=== PATIENT | female | born 1975 | race Caucasian/White ===

== ENCOUNTER → 2022-01-05 07:53 | Outpatient (REF) | payer OTHER, SELFPAY | LOC: ANHLAB 07:53 | PROVIDERS: PCP Family Medicine; Visit Provider Nurse Practitioner | DX: C44.319 Basal cell carcinoma of skin of other parts of face (principal) | CPT/HCPCS: 88305; 88331 ==

== ENCOUNTER → 2022-04-29 15:25 | Outpatient (CLI) | payer OTHER, SELFPAY ==
--- NOTE | ~2022-04-29 | US_ITS ---
EXAMINATION: US thyroid DATE: 04/29/2022 15:59 INDICATION: Nontoxic goiter, unspecified. TECHNIQUE: Multiple ultrasound images of the thyroid were obtained. COMPARISON: None. FINDINGS: The right thyroid lobe measures 4.5 x 2.0 x 1.7 cm. The left thyroid lobe measures 4.5 x 1.6 x 1.8 c m. The thyroid demonstrates diffusely heterogeneous echogenicity with nodules of similar ultrasound appearance. Vascularity is increased. IMPRESSION: 1. Heterogeneous, hypervascular thyroid, likely chronic lymphocytic (Brenda) thyroiditis. Reviewed, dictated and finalized at location A.
== END ==
PROVIDERS: PCP Family Medicine; Visit Provider Family Medicine
DX: E04.9 Nontoxic goiter, unspecified (principal)
CPT/HCPCS: 76536

== ENCOUNTER 2022-09-11 14:49 | Emergency (ER) | payer OTHER, SELFPAY ==
[2022-09-11 14:59] VITALS: BP 128/84; PULSE 85; RESP 16; TEMP 36.6; O2SAT 99
[2022-09-11 15:03] VITALS: BP 128/84; PULSE 85; RESP 16; TEMP 36.6; O2SAT 99
--- NOTE | 2022-09-11 15:15 | ED.URI ---
HPI - URI/Sore Throat General Chief Complaint: Upper Respiratory Infection Stated Complaint: rt side of ear/face, congestion, cough, runny nose Time Seen by Provider: 09/11/22 15:05 Source: patient, RN notes reviewed and old records reviewed Mode of arrival: ambulatory Limitations: no limitations History of Present Illness HPI Narrative: 47 year presents to [facility] complaints of having respiratory virus about 3 weeks ago, she reports having dry hacking cough with congestion and fatigue. Patient reports that since Wednesday or Wednesday she has had swelling and tenderness to the right side of her neck along her lymph nodes and jawline.Patient reports increased discomfort with coughing or if she yawns or open her mouth wide. Patient denies any fevers chills or sweats. MD elicited complaint: cough, rhinorrhea, nasal congestion and other (right side of ear or face pain) Onset (ago): day(s) (4) Pain scale (0-10): 3 Treatments prior to arrival: ibuprofen and other (sudafed) Related Data Home Medications Medication Instructions Recorded Confirmed loratadine 10 mg tablet (Claritin) 10 mg PO DAILY 01/05/22 09/11/22 duloxetine 60 mg capsule,delayed 60 mg PO DAILY 09/11/22 09/11/22 release rizatriptan 10 mg tablet 10 mg PO DAILY 09/11/22 trazodone 50 mg tablet 50 mg PO HS 09/11/22 09/11/22 Allergies Allergy/AdvReac Type Severity Reaction Status Date / Time amoxicillin Allergy Unknown Rash Verified 09/11/22 14:59 codeine Allergy Unknown Vomiting Verified 09/11/22 14:59 Penicillins Allergy Unknown Unknown Verified 09/11/22 14:59 thimerosal Allergy Unknown Swelling Verified 09/11/22 14:59 Review of Systems Review of Systems: CONSTITUTIONAL: Denies malaise, chills, sweats, or fever. EYES: Denies visual changes, redness, or discharge. ENT: Reports rhinorrhea, congestion, sinus pain, no otalgia no sore throat, positive for swollen gland right side of neck and jaw CARDIOVASCULAR: Denies chest pain, palpitations, or edema. RESPIRATORY: Reports cough.? Denies dyspnea. GASTROINTESTINAL: Denies abdominal pain, nausea, vomiting, diarrhea SKIN: Denies rash or itching. MUSCULOSKELETAL: Denies myalgia. NEUROLOGIC: Denies headache. 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 There is no relevant family history pertinent to the presenting complaint Exam Narrative: GENERAL: Well-appearing, well-nourished, and in no acute distress. HEAD: Normocephalic EYES: PERRLA, conjunctivae clear ENT: Nares clear, turbinates edematous and erythematous, clear discharge. Mucous memb
== END 2022-09-11 15:31 | disposition home or self-care (01) ==
PROVIDERS: Emergency Provider Registered Nurse; PCP Family Medicine
DX: R59.0 Localized enlarged lymph nodes (principal); Z87.891 Personal history of nicotine dependence; F32.A Depression, unspecified; N80.9 Endometriosis, unspecified; K21.9 Gastro-esophageal reflux disease without esophagitis; Z85.3 Personal history of malignant neoplasm of breast; Z86.16 Personal history of COVID-19
CPT/HCPCS: 99213; G0463

== ENCOUNTER 2023-01-25 16:38 | Emergency (ER) | payer OTHER, SELFPAY ==
--- NOTE | ~2023-01-25 | XR_ITS ---
EXAMINATION: XR hand LT min 3V DATE: 01/25/2023 16:55 INDICATION: Dorsal left hand pain post trauma TECHNIQUE: Posteroanterior, oblique and lateral views of the left hand were obtained. COMPARISON: None. FINDINGS: Alignment is normal. No fracture. Minimal to mild osteoarthritis at a few of the interphalangeal join ts with distal predominance. Soft tissues are unremarkable. IMPRESSION: 1. No acute osseous abnormality. Reviewed, dictated and finalized at location B.
[2023-01-25 16:47] VITALS: BP 133/99; PULSE 70; RESP 16; TEMP 36.8; O2SAT 100
--- NOTE | 2023-01-25 16:54 | ED.UPPEXIN ---
HPI - Extremity Injury (Upper) General Chief Complaint: Extremity Injury, Upper Stated Complaint: lt hand injury Time Seen by Provider: 01/25/23 16:59 Source: patient Mode of arrival: ambulatory Limitations: no limitations History of Present Illness HPI narrative: 47 y/o female presented for c/o left hand pain and bruising after injury 2 days ago. States while she was pulling a chain on the gas blower, she struck the hand on a wooden bench. Sustained a small abrasion to the top of the hand. States the hand swelling has improved since yesterday. Denies numbness, tingling or weakness, or decreased ROM. Applied Bactine and bandaid. Related Data Home Medications Medication Instructions Recorded Confirmed loratadine 10 mg tablet (Claritin) 10 mg PO DAILY 01/05/22 09/11/22 duloxetine 60 mg capsule,delayed 60 mg PO DAILY 09/11/22 09/11/22 release trazodone 50 mg tablet 50 mg PO HS 09/11/22 09/11/22 Allergies Allergy/AdvReac Type Severity Reaction Status Date / Time amoxicillin Allergy Unknown Rash Verified 09/11/22 14:59 codeine Allergy Unknown Vomiting Verified 09/11/22 14:59 Penicillins Allergy Unknown Unknown Verified 09/11/22 14:59 thimerosal Allergy Unknown Swelling Verified 09/11/22 14:59 Review of Systems Review of Systems: CONSTITUTIONAL: Denies body aches, fever, chills EYES: Denies visual changes ENT: Denies rhinorrhea, congestion CARDIOVASCULAR: Denies chest pain, palpitations, or edema. RESPIRATORY: Denies cough or dyspnea. SKIN: Denies rash, itching, or wounds. MUSCULOSKELETAL: per HPI NEUROLOGIC: Denies headache, numbness, tingling, or weakness. 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 Status post excision of lipoma (~1999) left ant abdomen - 1999 Family History Family History Father Family history of thyroid disease Grandparent Family history of lymphoma Social History Social History Smoking status: Former smoker Second hand tobacco smoke exposure: No Smoking end date: 09/27/98 Alcohol intake: current Alcohol use details: consumes 2 beers daily Substance use: never Substance use type: does not use Gender identity (if verbalized by the patient): Female Comments At time of signature, I have reviewed and agree with nursing past medical, surgical, social and family history unless otherwise noted. Please see nursing chart for further information. There is no relevant family history pertinent to the presenting complaint Exam Narrative: GENERAL: Well-appearing, well-nourished, and in no acute distress. HEAD: Normocephalic, atraumatic. EYES: PERRLA, conjunctivae clear NECK: Supple. CHEST: Speaks in full sentences. No respiratory distress. HEART: Regular rate and rhythm. Normal and equal peripheral pulses. EXTREMITIES: left hand has normal strength and sensation, normal range of motion. Moderate bruising, minimal swelling to dorsal aspect of hand. Tenderness to contusion. Superficial abrasion across hand. No obvious deformity; pulse palpable and equal bilaterally, skin warm, dry, pink. Capillary refill less than 3 seconds. SKIN: Warm, dry, no rash. NEURO: Alert and oriented x3. PSYCH: Normal mood and a
== END 2023-01-25 17:18 | disposition home or self-care (01) ==
PROVIDERS: Emergency Provider Nurse Practitioner Family; PCP Family Medicine
DX: S60.222A Contusion of left hand, initial encounter (principal); W22.8XXA Striking against or struck by other objects, initial encounter; F32.A Depression, unspecified; K21.9 Gastro-esophageal reflux disease without esophagitis; Z86.16 Personal history of COVID-19; Z87.891 Personal history of nicotine dependence
CPT/HCPCS: 73130; 99213; G0463

== ENCOUNTER 2023-10-18 02:54 | Day surgery (SDC) | payer BC, SELFPAY ==
[2023-07-22 12:08] VITALS: BMI 30.7
[2023-09-29 09:44] VITALS: BMI 30.7
--- NOTE | 2023-10-15 09:12 | SUR.PREOP ---
Patient called regarding upcoming procedure. Reviewed preop instructions, appointment times, and procedure prep.
[2023-10-18 06:26] VITALS: BP 152/92; PULSE 81; RESP 18; TEMP 37.1; O2SAT 99; BMI 30.2
[2023-10-18] MEDS: LACTATED RINGERS 1,000 ML 150 ML IV CONT (06:39)
--- NOTE | 2023-10-18 07:22 | WPDANESEPPF ---
Anes - Initial Pre Proc Eval Procedure: Operation Date: 10/18/23 07:30 Proposed Procedures p Esophagogastroduodenoscopy & Colonoscopy - Stanley Jeffries MD Date/Time: 10/18/23 07:22 Surgeon: Stanley Jeffries MD Pre Op Diagnosis: neoplasm screening,GERD,chronic cough Patient Data Age: 48 Gender: F Height: 1.6 m Weight: 77.5 kg Last Vital Signs Temp 98.7 F 10/18/23 06:26 Pulse 81 10/18/23 06:26 Resp 18 10/18/23 06:26 BP 152/92 H 10/18/23 06:26 Pulse Ox 99 10/18/23 06:26 O2 Del Method Room Air 10/18/23 06:26 Allergies Allergy/AdvReac Type Severity Reaction Status Date / Time amoxicillin Allergy Unknown Rash Verified 10/18/23 06:24 codeine Allergy Unknown Vomiting Verified 10/18/23 06:24 Penicillins Allergy Unknown Unknown Verified 10/18/23 06:24 thimerosal Allergy Unknown Swelling Verified 10/18/23 06:24 Home Medications Medication Instructions Recorded Confirmed Type duloxetine 60 mg capsule,delayed 60 mg PO DAILY 09/11/22 10/18/23 History release trazodone 50 mg tablet 50 mg PO HS 09/11/22 10/18/23 History fexofenadine 60 mg tablet 60 mg PO DAILY 05/03/23 10/18/23 History omeprazole 40 mg capsule,delayed 40 mg PO DAILY 05/03/23 10/18/23 History release buspirone 10 mg tablet 10 mg PO BID 06/04/23 10/18/23 History lorazepam 0.5 mg tablet 0.5 mg PO DAILY PRN Anxiety 08/11/23 10/18/23 History valacyclovir 1 gram tablet 1,000 mg PO Q12H PRN Cold Sores 09/29/23 10/18/23 History rizatriptan 10 mg tablet 10 mg PO PRN PRN Migraine Headache 09/30/23 10/18/23 Rx #9 tabs Patient hx anesthesia problems: none Family hx anesthesia problems: none Results Review: All pre-operative results and documents have been reviewed as part of the pre-operative evaluation. [facility] Past Medical History Medical History (Updated 08/11/23 @ 16:23 by Tristan Henderson MD) Anxiety Carcinoma in situ Left breast Depression Endometriosis determined by laparoscopy Genital herpes GERD without esophagitis Headache, migraine History of COVID-19 07/2020 History of left breast cancer Insomnia Papilloma of left breast 1999 - s/pl umpectomy Recurrent genital herpes Surgical History Surgical History (Updated 08/11/23 @ 15:45 by Yari Roman CMA) History of hysteroscopy History of lumpectomy (~1999) Left breast lumpectomy due to papilloma History of lumpectomy of left breast 05/2017 - 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 Status post excision of lipoma (~1999) left ant abdomen - 1999 Family History Family History Father Family history of thyroid disease Grandparent Family history of lymphoma Social History Social History Smoking status: Former smoker Second hand tobacco smoke exposure: No Smoking end date: 09/27/98 Alcohol intake: current Drinks per week: 2 Substance use: never Substance use type: does not use Lack of Transportation: No Lack of Food: Never True Current Housing: I Have Housing Concerned About Future Housing: No Difficulty Paying Gas/Electric Bills: No Difficulty Paying for Meds: No Currently Unemployed: No Education: Master's Degree or Higher Difficulty w/ Childcare or Family Care: No Living arrangements: other Additional living arrangements comments: with sp Gender identity (if verbalized by the patient): Female Agree to blood products: Yes Anes - Eval Final PreProcedure Day of Procedure 10/18/23 07:22 Patient weight: normal Heart: regular rate and rhythm Lungs: clear to auscultation Airway: Mallampati scale class II Neurological: alert and oriented Last oral intake: >/= 8 hours ASA classification: III Emergent: no Anesthetic plan: proceed Anesthesia type and monitoring: general GIVS and standard monitoring Results Review: All pre-operative results and documents have been reviewed as part o
--- NOTE | 2023-10-18 07:55 | PM.HPGS ---
History of Present Illness History of Present Illness Consent: Risks, benefits, and alternatives have been discussed and questions answered. Patient agrees to proceed with procedure. Chief complaint: neoplasm screening,GERD,chronic cough Narrative: Verónica Bustos is a 48 year old female with cough and gerd (has to clear throat when eating, no dysphagia) on omeprazole, had egd and colonoscopy about 18 years ago. Review of Systems Constitutional: Constitutional: Denies headache(s) and Denies weakness Eyes: Eyes: Denies blurry vision ENT: Reports Normal hearing present, Denies headache(s) and Denies neck pain Cardiovascular: Cardiovascular: Denies chest pain and Denies dyspnea Respiratory: Respiratory: Denies dyspnea Gastrointestinal: Gastrointestinal: Reports no additional gastrointestinal complaints Genitourinary: Genitourinary: Denies dysuria Musculoskeletal: Musculoskeletal: Denies neck pain Integumentary/Breasts: Skin/Breast: Denies dry skin Neurologic: Reports Normal hearing present, Denies headache(s) and Denies weakness Psychiatric: Psychiatric: Denies anxiety Endocrine: Endocrine: Denies change in body appearance Hematologic/Lymphatic: Hematologic/Lymphatic: Denies easy bleeding Allergic/Immunologic: Allergic/Immunologic: Denies urticaria PMFSH Past Medical History Medical History (Updated 10/18/23 @ 07:56 by Stanley Jeffries MD) Anxiety Carcinoma in situ Left breast Colon cancer screening Depression Endometriosis determined by laparoscopy Genital herpes GERD without esophagitis Headache, migraine History of COVID-19 07/2020 History of left breast cancer Insomnia Papilloma of left breast 1999 - s/pl umpectomy Recurrent genital herpes Surgical History Surgical History (Updated 08/11/23 @ 15:45 by Yari Roman CMA) History of hysteroscopy History of lumpectomy (~1999) Left breast lumpectomy due to papilloma History of lumpectomy of left breast 05/2017 - 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 Status post excision of lipoma (~1999) left ant abdomen - 1999 Family History Family History Father Family history of thyroid disease Grandparent Family history of lymphoma Social History Social History Smoking status: Former smoker Second hand tobacco smoke exposure: No Smoking end date: 01/01/99 Alcohol intake: current Drinks per week: 2 Substance use: never Substance use type: does not use Lack of Transportation: No Lack of Food: Never True Current Housing: I Have Housing Concerned About Future Housing: No Difficulty Paying Gas/Electric Bills: No Difficulty Paying for Meds: No Currently Unemployed: No Education: Master's Degree or Higher Difficulty w/ Childcare or Family Care: No Living arrangements: other Additional living arrangements comments: with sp Gender identity (if verbalized by the patient): Female Agree to blood products: Yes Meds Home Medications and Allergies Home Medications Medication Instructions Recorded Confirmed Type duloxetine 60 mg capsule,delayed 60 mg PO DAILY 09/11/22 10/18/23 History release trazodone 50 mg tablet 50 mg PO HS 09/11/22 10/18/23 History fexofenadine 60 mg tablet 60 mg PO DAILY 05/03/23 10/18/23 History omeprazole 40 mg capsule,delayed 40 mg PO DAILY 05/03/23 10/18/23 History release buspirone 10 mg tablet 10 mg PO BID 06/04/23 10/18/23 History lorazepam 0.5 mg tablet 0.5 mg PO DAILY PRN Anxiety 08/11/23 10/18/23 History valacyclovir 1 gram tablet 1,000 mg PO Q12H PRN Cold Sores 09/29/23 10/18/23 History rizatriptan 10 mg tablet 10 mg PO PRN PRN Migraine Headache 09/30/23 10/18/23 Rx #9 tabs Allergies Allergy/AdvReac Type Severity Reaction Status Date / Time amoxicillin Allergy Unknown Rash Verified 10/18/23 06:24 codeine Allergy Unknown Vomiting Verified 10/18/23 0
--- NOTE | 2023-10-18 08:00 | SUR.OPER ---
EGD start 799 end 803, Colonoscopy start 808
[2023-10-18 08:23] VITALS: BP 122/93; PULSE 79; RESP 21; O2SAT 98
[2023-10-18 08:33] VITALS: BP 124/85; PULSE 78; RESP 21; O2SAT 98
[2023-10-18 08:43] VITALS: BP 130/65; PULSE 72; RESP 18; O2SAT 98
== END 2023-10-18 08:48 | disposition home or self-care (01) ==
PROVIDERS: PCP Family Medicine; Visit Provider Internal Medicine Gastroenterology
PROC: 0DJ08ZZ Inspection of Upper Intestinal Tract, Via Natural or Artificial Opening Endoscopic (ICD-10-PCS; CPT 43235; principal; 2023-10-18 07:30)
DX: Z12.11 Encounter for screening for malignant neoplasm of colon (principal); K21.9 Gastro-esophageal reflux disease without esophagitis; R05.3 Chronic cough; F41.9 Anxiety disorder, unspecified; G47.00 Insomnia, unspecified; G43.909 Migraine, unspecified, not intractable, without status migrainosus; N80.9 Endometriosis, unspecified; Z98.890 Other specified postprocedural states; Z87.891 Personal history of nicotine dependence; Z85.3 Personal history of malignant neoplasm of breast; Z80.7 Family history of other malignant neoplasms of lymphoid, hematopoietic and related tissues
CPT/HCPCS: 43239; 45378; 88305; J2704; J7120

== ENCOUNTER → 2023-10-25 15:29 | Outpatient (CLI) | payer BC, SELFPAY ==
--- NOTE | ~2023-10-25 | US_ITS ---
EXAMINATION: US thyroid DATE: 10/25/2023 15:48 INDICATION: Nontoxic goiter, unspecified. TECHNIQUE: Multiple ultrasound images of the thyroid were obtained. COMPARISON: Ultrasound 04/29/2022 FINDINGS: The right thyroid lobe measures 4.3 x 2.0 x 1.7 cm. The left thyroid lobe measures 4.7 x 1.6 x 2.0 c m. The thyroid demonstrates diffusely heterogeneous echogenicity. Vascularity is increased. In the r ight thyroid lobe, there is a 1.2 cm solid, hypoechoic, wider than tall nodule with smooth margin wit hout echogenic foci (TI-RADS TR4). IMPRESSION: 1. Heterogeneous, hypervascular thyroid, consistent with chronic lymphocytic (Brenda) thyroiditis. 2. Thyroid nodule, stable from 04/29/2022. Thyroid ultrasound is recommended in one year. Reviewed, dictated and finalized at location A. [employer] IMPRESSION: 1. Heterogeneous, hypervascular thyroid, consistent with chronic lymphocytic (H ashimoto) thyroiditis. 2. Thyroid nodule, stable from 04/29/2022. Thyroid ultrasound is recommended in o ne year.
== END ==
PROVIDERS: PCP Family Medicine; Visit Provider Nurse Practitioner Family
DX: E04.9 Nontoxic goiter, unspecified (principal)
CPT/HCPCS: 76536

== ENCOUNTER 2023-11-28 12:44 | Emergency (ER) | payer BC, SELFPAY ==
[2023-11-28 12:52] VITALS: BP 155/87; PULSE 68; RESP 16; TEMP 37.3; O2SAT 99
[2023-11-28 12:55] VITALS: BP 155/87; PULSE 68; RESP 16; TEMP 37.3; O2SAT 99
--- NOTE | 2023-11-28 13:22 | ED.URI ---
HPI - URI/Sore Throat General Chief Complaint: Upper Respiratory Infection Stated Complaint: Upper Respiratory Infection Time Seen by Provider: 11/28/23 13:08 Source: patient and RN notes reviewed Mode of arrival: ambulatory Limitations: no limitations History of Present Illness HPI Narrative: Patient presents today complaining of a 3 week history of cold symptoms to include sinus pressure, nasal congestion, productive cough. Patient was in [place] last week and states she was mildly short of breath at altitude. Denies fever. She has tried Sudafed, Claritin, nasal spray, and Advil as well as Mucinex with some mild relief. Related Data Home Medications Medication Instructions Recorded Confirmed duloxetine 60 mg capsule,delayed 60 mg PO DAILY 09/11/22 11/28/23 release trazodone 50 mg tablet 50 mg PO HS 09/11/22 11/28/23 fexofenadine 60 mg tablet 60 mg PO DAILY 05/03/23 11/28/23 omeprazole 40 mg capsule,delayed 40 mg PO DAILY 05/03/23 11/28/23 release lorazepam 0.5 mg tablet 0.5 mg PO DAILY PRN Anxiety 08/11/23 11/28/23 valacyclovir 1 gram tablet 1,000 mg PO Q12H PRN Cold Sores 09/29/23 11/28/23 Allergies Allergy/AdvReac Type Severity Reaction Status Date / Time amoxicillin Allergy Unknown Rash Verified 11/28/23 12:51 codeine Allergy Unknown Vomiting Verified 11/28/23 12:51 Penicillins Allergy Unknown Rash Verified 11/28/23 13:02 thimerosal Allergy Unknown Swelling Verified 10/18/23 06:24 Review of Systems Review of Systems: CONSTITUTIONAL: Denies body aches, fever, chills, or sweats. EYES: Denies visual changes, redness, or discharge. ENT: Denies rhinorrhea, sore throat, or otalgia.+ congestion, sinus pressure CARDIOVASCULAR: Denies chest pain, palpitations, or edema. RESPIRATORY: Denies dyspnea.+ cough GASTROINTESTINAL: Denies abdominal pain, nausea, vomiting, or diarrhea. GENITOURINARY: Denies dysuria or hematuria. SKIN: Denies rash, itching, or wounds. MUSCULOSKELETAL: Denies back pain, joint pain, or myalgia. NEUROLOGIC: Denies headache, numbness, tingling, or weakness. PSYCH: Denies depression or anxiety. [facility] Past Medical History Medical History (Updated 11/28/23 @ 13:26 by Alba Whitman, [employer], ) Anxiety Carcinoma in situ Left breast Colon cancer screening Depression Endometriosis determined by laparoscopy Genital herpes GERD without esophagitis Headache, migraine History of COVID-19 07/2020 History of left breast cancer Insomnia Papilloma of left breast 1999 - s/pl umpectomy Recurrent genital herpes Surgical History Surgical History (Updated 08/11/23 @ 15:45 by Yari Roman CMA) History of hysteroscopy History of lumpectomy (~1999) Left breast lumpectomy due to papilloma History of lumpectomy of left breast 05/2017 - 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 Status post excision of lipoma (~1999) left ant abdomen - 1999 Family History Family History Father Family history of thyroid disease Grandparent Family history of lymphoma Social History Social History Smoking status: Former smoker Second hand tobacco smoke exposure: No Smoking end date: 09/27/98 Alcohol intake: current Drinks per week: 2 Substance use: never Substance use type: does not use Lack of Transportation: No Lack of Food: Never True Current Housing: I Have Housing Concerned About Future Housing: No Difficulty Paying Gas/Electric Bills: No Difficulty Paying for Meds: No Currently Unemployed: No Education: Master's Degree or Higher Difficulty w/ Childcare or Family Care: No Living arrangements: other Additional living arrangements comments: with sp Gender identity (if verbalized by the patient): Female Agree to blood products: Yes Comments At time of signature, I have reviewed and agree with nursing past medical, surgical, social and family history unless othe
== END 2023-11-28 13:33 | disposition home or self-care (01) ==
PROVIDERS: Emergency Provider Nurse Practitioner; PCP Family Medicine
DX: J40 Bronchitis, not specified as acute or chronic (principal); J01.90 Acute sinusitis, unspecified; F41.9 Anxiety disorder, unspecified; F32.A Depression, unspecified; Z79.899 Other long term (current) drug therapy; Z85.3 Personal history of malignant neoplasm of breast; Z87.891 Personal history of nicotine dependence
CPT/HCPCS: 99213; G0463

== ENCOUNTER 2024-05-05 17:03 | Emergency (ER) | payer BC, SELFPAY ==
[2024-05-05 17:18] VITALS: BP 141/92; PULSE 74; RESP 20; TEMP 36.6; O2SAT 100
--- NOTE | 2024-05-05 17:37 | ED.EAR ---
HPI - Ear Problem General Chief complaint: Ear Stated complaint: L EARACHE Time Seen by Provider: 05/05/24 17:27 Source: patient and RN notes reviewed Mode of arrival: ambulatory Limitations: no limitations History of Present Illness HPI Narrative: Patient presents today with a 2 day history of left ear pain with decreased hearing. No additional URI symptoms to include congestion, rhinorrhea, sore throat, fever. She has been using spray lidocaine and ibuprofen with mild relief. She had been swimming last weekend prior to onset of symptoms. Related Data Home Medications Medication Instructions Recorded Confirmed fexofenadine 60 mg tablet 60 mg PO DAILY 05/03/23 11/28/23 omeprazole 40 mg capsule,delayed 40 mg PO DAILY 05/03/23 11/28/23 release Allergies Allergy/AdvReac Type Severity Reaction Status Date / Time amoxicillin Allergy Unknown Rash Verified 05/05/24 17:36 codeine Allergy Unknown Vomiting Verified 05/05/24 17:36 Penicillins Allergy Unknown Rash Verified 05/05/24 17:36 thimerosal Allergy Unknown Swelling Verified 05/05/24 17:36 Review of Systems Review of Systems: CONSTITUTIONAL: Denies body aches, fever, chills, or sweats. EYES: Denies visual changes, redness, or discharge. ENT: Denies rhinorrhea, congestion, sore throat. + left ear pain and decreased hearing CARDIOVASCULAR: Denies chest pain, palpitations, or edema. RESPIRATORY: Denies cough or dyspnea. GASTROINTESTINAL: Denies abdominal pain, nausea, vomiting, or diarrhea. GENITOURINARY: Denies dysuria or hematuria. SKIN: Denies rash, itching, or wounds. MUSCULOSKELETAL: Denies back pain, joint pain, or myalgia. NEUROLOGIC: Denies headache, numbness, tingling, or weakness. PSYCH: Denies depression or anxiety. 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 Status post excision of lipoma (~1999) left ant abdomen - 1999 Family History Family History Father Family history of thyroid disease Grandparent Family history of lymphoma Social History Social History Smoking status: Former smoker Second hand tobacco smoke exposure: No Smoking end date: 09/27/98 Alcohol intake: current Drinks per week: 2 Substance use: never Substance use type: does not use Lack of Transportation: No Lack of Food: Never True Current Housing: I Have Housing Concerned About Future Housing: No Difficulty Paying Gas/Electric Bills: No Difficulty Paying for Meds: No Currently Unemployed: No Education: Master's Degree or Higher Difficulty w/ Childcare or Family Care: No Living arrangements: other Additional living arrangements comments: with sp Gender identity (if verbalized by the patient): Female Agree to blood products: Yes Comments At time of signature, I have reviewed and agree with nursing past medical, surgical, social and family history unless otherwise noted. Please see nursing chart for further information. There is no relevant family history pertinent to the presenting complaint Exam Narrative: GENERAL: Well-appearing, well-nourished, and in no acute distress. HEAD: Normocephalic, atraumatic. EYES: EOMI. No redness or drainage. Conjunctivae normal. ENT: Mu
== END 2024-05-05 17:40 | disposition home or self-care (01) ==
PROVIDERS: Emergency Provider Nurse Practitioner; PCP Family Medicine
DX: H60.92 Unspecified otitis externa, left ear (principal); Z87.891 Personal history of nicotine dependence; N80.9 Endometriosis, unspecified; K21.9 Gastro-esophageal reflux disease without esophagitis; Z85.3 Personal history of malignant neoplasm of breast; Z86.16 Personal history of COVID-19
CPT/HCPCS: 99213; G0463